=== PATIENT | female | born 1975 | race American Indian/Alaskan Native ===

== ENCOUNTER 2019-03-05 09:52 | Outpatient (CLI) | payer BC ==
--- NOTE | 2019-03-05 14:35 | Mammography Report ---
DIGITAL SCREENING MAMMOGRAM WITH CAD, 03/05/2019 INDICATION: Routine screening mammography. TECHNIQUE: Digital bilateral 2D mammography was obtained in the craniocaudal and mediolateral obliq ue projections. This examination was interpreted with the benefit of Computer-Aided Detection analysi s. COMPARISON: 08/02/2011 FINDINGS: Breast Density: The breasts are heterogeneously dense, which may obscure small masses. A left asymmetry on the CC view requires additional imaging. No architectural distortion or suspiciou s calcifications of the left breast. There is no evidence of dominant mass, suspicious calcifications or architectural distortion in the right breast. IMPRESSION: Left asymmetry requiring additional imaging. Recommend recall for left lateral, exaggerat ed CC and spot compression CC views and left breast ultrasound if needed. Follow up recommendation: Special View: Spot Category 0: Incomplete. Needs additional imaging evaluation and/or prior mammograms for comparison. A "normal" or negative report should not discourage follow up or biopsy of a clinically significant f inding. A written summary of these findings will be mailed to the patient. The patient will be entered into a mammography reporting system which will generate a reminder letter for the patient's next appointmen t at the appropriate interval. The [employer] recommends yearly mammograms starting at age 40 and continuing as l brisa as a woman is in good health. Breast MRI is recommended for women with an approximate 20-25% or greater lifetime risk of breast cancer, including women with a strong family history of breast or ova klye cancer or who have been treated for Hodgkin's disease. Signer Name: Andreas Harkins MD Signed: 03/05/2019 2:31 PM Workstation Name: [id number]
== END 2019-03-05 09:53 | disposition home or self-care (01) ==
LOC: SPVWC 09:52
PROVIDERS: ATTEND Obstetrics & Gynecology
DX: Z12.31 Encounter for screening mammogram for malignant neoplasm of breast (principal)
CPT/HCPCS: 77067

== ENCOUNTER 2020-12-19 14:21 | Outpatient (CLI) | payer BC ==
--- NOTE | 2020-12-19 15:56 | Magnetic Resonance Report ---
Bilateral breast MR without and with contrast. History: Screening breast MRI, patient with genetic susceptibility for breast cancer and family histo ry of breast cancer. Comparison: 03/10/2020, 09/29/2019. Technique: Multiplanar multisequence MR images of the breast were obtained before and after the intra venous administration of 16 ml of Clariscan contrast agent. Post processing analysis and review was p erformed on a separate computer workstation. Findings: The breasts are composed of heterogeneously dense fibroglandular tissue. There is mild background par enchymal enhancement. No discrete enhancing mass, dominant focus, or other abnormal enhancement is identified within either breast. No abnormal axillary or internal mammary lymph nodes. Impression: No evidence of breast malignancy. Patient will be due for annual screening mammogram in February 2021. BIRADS 1: Negative. A normal MRI does not exclude the presence of some forms of breast malignancy as literature reports s uggest that some forms of ductal carcinoma in situ or lobular carcinoma, particularly, may not be det ected on MRI. The sensitivity and specificity of MRI for cancers under 5 mm may be reduced. MRI does not replace the recommendation for annual conventional mammographic evaluation and should be used as an adjunct to mammography and physical examination as necessary. Signer Name: Rom Ruvalcaba MD Signed: 12/19/2020 3:52 PM Workstation Name: [id number]
== END 2020-12-19 14:22 | disposition home or self-care (01) ==
LOC: SPVIMAG 14:21
PROVIDERS: ATTEND Surgery
DX: Z15.89 Genetic susceptibility to other disease (principal); Z80.0 Family history of malignant neoplasm of digestive organs; Z80.3 Family history of malignant neoplasm of breast; Z51.89 Encounter for other specified aftercare
CPT/HCPCS: A9575; C8908; 77049